=== PATIENT | female | born 1955 | race African-American/Black ===

== ENCOUNTER 2022-05-21 09:32 | Day surgery (SDC) | payer MEDICARE, OTHER ==
[2022-05-20 11:34] VITALS: BMI 27.8
[~2022-05-21 09:32] MED LIST: Bupivacaine PF 0.5% 30 ML VIAL ONE; Neomycin-Polymyxin 1 ML AMP ONE
[2022-05-21] MEDS ORDERED: Dexamethasone 4 mg/ml Vial ONE (10:59)
[2022-05-21] MEDS ORDERED: Ondansetron PF 4 MG/2 ML Vial ONE (10:59)
[2022-05-21] MEDS ORDERED: Fentanyl 100 MCG/2 ML VIAL ONE (10:59)
[2022-05-21] MEDS ORDERED: PROPOFOL 20 ML ONE (10:59)
[2022-05-21] MEDS ORDERED: Lidocaine 2% PF 5 ML VIAL ONE (11:00)
[2022-05-21] MEDS ORDERED: MINERAL OIL/WHITE PETROLATUM 3.5 GM TUBE ONE (11:00)
[2022-05-21] MEDS ORDERED: CEFAZOLIN 2 GM VIAL ONE (11:11)
[2022-05-21] MEDS ORDERED: PHENYLEPHRINE-NS 100 MCG/ML 10 ML SYRINGE ONE (11:44)
== END 2022-05-21 13:15 | disposition home or self-care (01) ==
LOC: CSHSDC 09:32
PROVIDERS: ATTEND Podiatrist Foot & Ankle Surgery
PROC: 0QBR0ZZ Excision of Left Toe Phalanx, Open Approach (ICD-10-PCS; principal; 2022-05-21)
DX: S92.412K Displaced fracture of proximal phalanx of left great toe, subsequent encounter for fracture with nonunion (principal); I10 Essential (primary) hypertension; F17.210 Nicotine dependence, cigarettes, uncomplicated; I47.1 Supraventricular tachycardia; I25.118 Atherosclerotic heart disease of native coronary artery with other forms of angina pectoris; E78.2 Mixed hyperlipidemia; M06.9 Rheumatoid arthritis, unspecified; Z79.899 Other long term (current) drug therapy; Z79.02 Long term (current) use of antithrombotics/antiplatelets; Z88.8 Allergy status to other drugs, medicaments and biological substances; Z95.5 Presence of coronary angioplasty implant and graft; X58.XXXD Exposure to other specified factors, subsequent encounter
CPT/HCPCS: J1100; J2001; J2405; J2704; J3010; S0020

== ENCOUNTER 2022-06-10 15:29 | Outpatient (CLI) | payer MEDICARE, MEDICAID | END 2022-06-10 15:30 | disposition home or self-care (01) | LOC: CSHMRI 15:29 | PROVIDERS: ATTEND Orthopaedic Surgery Hand Surgery | DX: S69.92XA Unspecified injury of left wrist, hand and finger(s), initial encounter (principal); M12.832 Other specific arthropathies, not elsewhere classified, left wrist; M25.432 Effusion, left wrist; M85.842 Other specified disorders of bone density and structure, left hand; M94.242 Chondromalacia, joints of left hand ==

== ENCOUNTER 2022-09-25 14:37 | Outpatient (CLI) | payer MEDICARE, OTHER | END 2022-09-25 14:38 | disposition home or self-care (01) | LOC: CSHMAMMO 14:37 | PROVIDERS: ATTEND Family Medicine | DX: Z12.31 Encounter for screening mammogram for malignant neoplasm of breast (principal); M81.0 Age-related osteoporosis without current pathological fracture; Z80.3 Family history of malignant neoplasm of breast; Z91.89 Other specified personal risk factors, not elsewhere classified | CPT/HCPCS: 77063; 77067; 77080 ==